=== PATIENT | female | born 1930 | race Two or more races ===

== ENCOUNTER → 2017-11-14 | Emergency (ER) | payer OTHER ==
[~2017-11-14] VITALS: Ht 167.6 cm; Wt 63.5 kg
[~2017-11-14] MED LIST: ABILIFY2 MG; ABILIFY2 MG PO; ALPRAzolam 1 MG TABLET PO; ARICEPT10 MG; ASA PO; Aricept 10 MG TABLET PO; CIPRO500 MG PO; Coreg PO; LEVSIN/SL0.125 MG PO; LIPITOR20 MG PO; PAXIL20 MG; PAXIL40 MG; PLAVIX 75MG PO; PLAVIX75 MG; PLAVIX75 MG PO; Paxil PO; Pepcid 40MG TAB PO; ZoLOFT 50MG TABLET PO; [UNRECOGNIZED DRUG - OTHER]
== END | disposition home or self-care (01) ==
LOC: ER 09:28
DX: B34.9 Viral infection, unspecified (principal); J11.1 Influenza due to unidentified influenza virus with other respiratory manifestations

== ENCOUNTER → 2017-11-19 | Emergency (ER) | payer OTHER ==
[~2017-11-19] VITALS: Ht 170.2 cm; Wt 68.0 kg
== END | disposition left against medical advice (07) ==
LOC: ER 23:32
DX: Z53.20 Procedure and treatment not carried out because of patient's decision for unspecified reasons (principal)

== ENCOUNTER 2018-01-20 15:01 | Emergency (ER) | payer OTHER ==
[~2018-01-20] VITALS: Ht 167.6 cm; Wt 68.0 kg
== END 2018-01-20 18:45 | disposition home or self-care (01) ==
LOC: ER 15:01
DX: R53.1 Weakness (principal); N39.0 Urinary tract infection, site not specified

== ENCOUNTER 2018-03-06 07:07 | Outpatient (CLI) | payer OTHER | END 2018-03-06 07:16 | disposition home or self-care (01) | LOC: LAB 07:07 | DX: E55.9 Vitamin D deficiency, unspecified (principal); M85.9 Disorder of bone density and structure, unspecified; E21.3 Hyperparathyroidism, unspecified; E88.89 Other specified metabolic disorders; M81.8 Other osteoporosis without current pathological fracture; E83.42 Hypomagnesemia; E56.1 Deficiency of vitamin K ==

== ENCOUNTER → 2018-04-03 | Outpatient (CLI) | payer OTHER | END | disposition home or self-care (01) | LOC: RAD 12:45 | DX: M25.551 Pain in right hip (principal); M25.552 Pain in left hip ==

== ENCOUNTER 2018-04-05 08:24 | Emergency (ER) | payer OTHER ==
[~2018-04-05] VITALS: Ht 167.6 cm; Wt 70.3 kg
== END 2018-04-05 11:14 | disposition home or self-care (01) ==
LOC: ER 08:24
DX: J22 Unspecified acute lower respiratory infection (principal); J11.1 Influenza due to unidentified influenza virus with other respiratory manifestations

== ENCOUNTER 2018-06-20 07:29 | Outpatient (CLI) | payer OTHER | END 2018-06-20 14:43 | disposition home or self-care (01) | LOC: TOM 07:29 | DX: C67.0 Malignant neoplasm of trigone of bladder (principal) | CPT/HCPCS: 71046; 74177; Q9965 ==

== ENCOUNTER 2018-07-06 09:56 | Emergency (ER) | payer OTHER ==
[~2018-07-06] VITALS: Ht 167.6 cm; Wt 70.3 kg
[2018-07-06] MEDS ORDERED: NAMENDA XR7 MG (10:16)
[2018-07-06] MEDS ORDERED: PAXIL20 MG (10:17)
[2018-07-06] MEDS ORDERED: TESSALON PERLE100 M1 PO (12:24)
[2018-07-06] MEDS ORDERED: PROMETHAZINE W473 ML PO (12:24)
[2018-07-06] MEDS ORDERED: ZITHROMAX500 MG PO (12:24)
== END 2018-07-06 12:53 | disposition home or self-care (01) ==
LOC: ER 09:56
DX: J40 Bronchitis, not specified as acute or chronic (principal)

== ENCOUNTER 2018-11-22 07:26 | Emergency (ER) | payer OTHER ==
[~2018-11-22] VITALS: Ht 170.2 cm; Wt 68.0 kg
[~2018-11-22 07:26] MED LIST changes: +NAMENDA XR7 MG; +PROMETHAZINE W473 ML PO; +TESSALON PERLE100 M1 PO; +ZITHROMAX500 MG PO
[2018-11-22] MEDS ORDERED: CLONAZEPAM1 MG PO (07:40)
[2018-11-22] MEDS ORDERED: VITAMIN D31000 UNIT PO (07:42)
[2018-11-22] MEDS ORDERED: INDERAL LA80 MG PO (07:44)
[2018-11-22] MEDS ORDERED: TRILIPIX45 MG PO (07:45)
== END 2018-11-22 09:49 | disposition home or self-care (01) ==
LOC: ER 07:26
DX: J06.9 Acute upper respiratory infection, unspecified (principal)

== ENCOUNTER 2019-02-17 14:42 | Emergency (ER) | payer OTHER ==
[~2019-02-17] VITALS: Ht 170.2 cm; Wt 72.6 kg
[~2019-02-17 14:42] MED LIST changes: +CLONAZEPAM1 MG PO; +INDERAL LA80 MG PO; +TRILIPIX45 MG PO; +VITAMIN D31000 UNIT PO
== END 2019-02-17 19:29 | disposition home or self-care (01) ==
LOC: ER 14:42
DX: J40 Bronchitis, not specified as acute or chronic (principal)

== ENCOUNTER 2019-05-19 14:22 | Emergency (ER) | payer OTHER ==
[~2019-05-19] VITALS: Ht 170.2 cm; Wt 68.0 kg
== END 2019-05-19 15:40 | disposition home or self-care (01) ==
LOC: ER 14:22
DX: S60.474A Other superficial bite of right ring finger, initial encounter (principal); W54.0XXA Bitten by dog, initial encounter; Y93.89 Activity, other specified; Y92.89 Other specified places as the place of occurrence of the external cause; Y99.8 Other external cause status

== ENCOUNTER 2019-09-10 12:35 | Emergency (ER) | payer OTHER ==
[~2019-09-10] VITALS: Ht 170.2 cm; Wt 68.0 kg
== END 2019-09-10 15:37 | disposition home or self-care (01) ==
LOC: ER 12:35
DX: B34.9 Viral infection, unspecified (principal); R05 Cough

== ENCOUNTER 2019-10-17 10:12 | Emergency (ER) | payer OTHER ==
[~2019-10-17] VITALS: Ht 170.2 cm; Wt 72.6 kg
== END 2019-10-17 14:03 | disposition home or self-care (01) ==
LOC: ER 10:12
DX: M75.52 Bursitis of left shoulder (principal)

== ENCOUNTER 2019-11-07 13:01 | Emergency (ER) | payer OTHER ==
[~2019-11-07] VITALS: Ht 170.2 cm; Wt 72.6 kg
== END 2019-11-07 14:14 | disposition home or self-care (01) ==
LOC: ER 13:01
DX: G89.29 Other chronic pain (principal); M25.512 Pain in left shoulder; M75.102 Unspecified rotator cuff tear or rupture of left shoulder, not specified as traumatic